=== PATIENT | female | born 1990 | race African-American/Black ===

== ENCOUNTER → 2020-10-13 | Outpatient (CLI) | payer BC, OTHER ==
[~2020-10-13] VITALS: Ht 162.6 cm; Wt 72.6 kg
[~2020-10-13] MED LIST: BANOPHEN25 MG PO; FLEXERIL PO; LIDODERM1 EACH TOP; NAPROSYN500 MG PO; ROBAXIN 750 MG750 MG PO
[2020-10-13 13:06] VITALS: BP 118/68
--- NOTE | 2020-10-13 13:29 | NUR ---
Pain Clinic Assessment: 1. History of Osteoarthritis: Not Applicable History of Rheumatoid Arthritis: Not Applicable 2. Height: 5 ft. 4 in. 162.6 cm. Weight: 160.0 lb. oz. 72.576 kg. Patient's BMI: 27.5 3. Vital Signs: BP: 118/68 Pulse: 94 Resp: 14 Temp: 02 Sat: 99 ECG Mon: 4. Pain Intensity: 7 5. Fall Risk: Dizziness: N Needs help standing or walking: N Fallen in the last 3 months: N Fall risk comments: 6. Patient on Blood Thinner: None 7. History of Hypertension: N 8. Opioid Therapy greater than 6 weeks: N Opiate Contract Signed: 9. Risk Assessment Tool Provided: MODERATE 10. Functional Assessment Tool: 67/70 11. Recreational Drug Use: Current within past 3 mos Drug Type: MARIJUANIA Tobacco Use: Never Smoker Tobacco Type: Amount or Packs/day: How Many Years: Alcohol Use: Yes Frequency: Daily Quant: 1
--- NOTE | 2020-10-14 11:42 | HPC ---
[facility] [place] [address] PAIN MANAGEMENT CONSULTATION Name: KIRSTIN ELENA Room #: REG ASHLEY SmallJanetteSilviaJanette#: [id number] Admission: 10/13/20 Attend Phys: Duane Leon DO Discharge: Date of : 89 Report #: [id number] THIS REPORT FOR: cc: Cody Wilburn MD,Cody Leon,Duane Cintron DO ~ DATE OF SERVICE: 10/13/2020 CHIEF COMPLAINT: Low back pain, left lower extremity pain with paresthesias, intermittent mid back pain and neck pain. HISTORY OF PRESENT ILLNESS: As you know, the patient is a 30-year-old female who reports longstanding history of low back pain, left anterior thigh pain beginning 05/28/2009. The patient reports no specific injury or trauma that have led to that symptom development. She has trialled [id number] medications, rest, relaxation without improvement in symptoms. She has been treated by multiple physicians over the past couple of years seeking chiropractic manipulation, massage therapy. She has been started and stopped on Flexeril, naproxen, ibuprofen and Robaxin. She has had fentanyl patches and utilizes marijuana. Despite all these potential treatment options she continued to experience pain. She sought evaluation through neurosurgery, who advised the patient there is no surgical necessity and she only has mild scoliotic curvature. She was subsequently referred to our clinic to discuss undergoing interventional treatments to address axial back pain and left lower extremity pain. The patient reports today her pain is continuous, steady and constant with intermittent exacerbations. She states her pain is shooting, cramping, aching, crushing, pulling, throbbing, pounding, sharp, stabbing and tender, places current pain score 7/10, daily average anywhere from 8-10/10, worst pain has been is 16/10. The patient states pain is exacerbated with "anything." Nothing tends to improve pain. The patient has recently started physical therapy and states that this makes her pain worse and I encouraged her to continue this treatment. She has been referred to our clinic to discuss interventional treatment options. PAST MEDICAL HISTORY: 1. Asthma. 2. Hypothyroidism. 3. Chronic back pain. PAST SURGICAL HISTORY: None. SOCIAL HISTORY: The patient denies tobacco use. She smokes marijuana to help with her back symptoms. She admits to 1 alcohol beverage per day. 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 She is not in litigation in regards to pain. She is unaccompanied today. REVIEW OF SYSTEMS: Positive for eye disease, wearing corrective eyewear, blurred and double vision, asthma, wheezing, abdominal pain, irregular menses, lightheadedness and dizziness, numbness and tingling sensations, history of paralysis, psychogenic nervousness, depression, thyroid disease. All other review of systems negative per 12-point review of systems other than those listed in history of present illness. Pain impact score 67 of 70, near complete interference of daily activities secondary to pain. ALLERGIES: No known drug allergies. CURRENT MEDICATIONS: Lidoderm patch apply topically every 12 hours, diphenhydramine 25 mg p.o. at bedtime, methocarbamol 750 mg b.i.d., naproxen 500 mg t.i.d., cyclobenzaprine 10 mg t.i.d. p.r.n. IMAGING: X-ray of the lumbar spine obtained on 09/21/2020 shows mild thoracolumbar scoliosis with curvature with convexity to the right, vertebral heights are well maintained, mild disk narrowing at the L5-S1 level. PHYSICAL EXAMINATION: VITAL SIGNS: Blood pressure 118/68, pulse 94, respiratory rate 14 and unlabored. The patient is 99% on room air. Height 5 feet 4 inches tall, weight 160 pounds, BMI calculated 27.5. GENERAL: Well-developed, well-nourished, well-hydrated 30-year-old female appearing her stated age. She is in no acute distress, awake, alert and oriented x 3. Current pain is rated at 7/10. HEENT: Normocephalic, atraumatic. Pupils equal, round, and responsive. Extraocular muscles are intact. Sclerae nonicteric without injection. Speech appears fluent. The patient is wearing a mask in compliance with COVID-19 regulations. Trachea is midline. No palpable masses, or swelling. LUNGS: Clear, no wheeze, rhonchi or rales. CARDIOVASCULAR: Regular. No appreciable gallop, no rub. ABDOMEN: Soft, nontender, nondistended, normoactive bowel sounds. EXTREMITIES: Show no clubbing, no cyanosis, no edema. MUSCULOSKELETAL: Lower extremity strength equal and symmetrical 5/5, intact to light touch from L1 through S2 dermatomes. Seated straight leg raising negative. Supine straight leg raising negative. Shelley test is negative. Modified Gaenslen's positive for axial low back pain. Ankle clonus negative. Babinski is negative. Romberg's negative. The patient is able to toe walk, heel walk and tandem gait without any issues. Reflexes are 2+/4 bilaterally in the patella and Achilles as well as the biceps, brachioradialis and triceps. ASSESSMENT: 1. Chronic low back pain. [facility] [address] [place] [address] PAIN MANAGEMENT CONSULTATION Name: KIRSTIN ELENA Room #: REG ASHLEY Adkins#: [id number] Admission: 10/13/20 Attend Phys: Duane Leon DO Discharge: Date of : 90 Report #: [id number] 2. Left lower extremity pain. 3. Mild dextroscoliosis. 4. Chronic intractable pain. PLAN: 1. The patient has been referred to our service by her neurosurgery team to discuss interventional treatment options to address axial back and left lower extremity symptoms. I was unable to elicit any type of radicular component of the patient's symptoms today. She does have some myofascial tenderness over the paraspinal musculature of the thoracic and lumbar area, but no spinous process tenderness. The patient is complaining of pain beginning in the low back and radiating down the left leg, which could be due to mild changes noted at the L5-S1 level. We discussed with the patient that treatment options would include the following. 2. We discussed physical therapy, stretching exercises and core strengthening as the gold standard and likely the most effective treatment option. We discussed utilization of nonsteroidal anti-inflammatories. We would strongly suggest no opioid medication as there is no noted pathology, but we will defer to the primary team who has been writing opioid medications in the past. We concur with Dr. Wilburn in regards to the use of opioid medications as ineffectual treating current symptoms. We discussed interventional treatment options for which the patient was referred to our clinic. These would include epidural injections and trigger point injections. We also discussed with the patient the surgical options that she has sought which has been advised she is nonsurgical candidate. After reviewing the risks and benefits of all the proposed treatment options, the patient chose to begin with an epidural injection. 3. The patient will establish an appointment to see us back to undergo first in a series of lumbar epidural injections to address low back and left lower extremity symptoms. We are hopeful the patient can undergo the procedure quite quickly. We will discuss her case with her third democrat payer to confirm that authorizations are completed if they are necessary and have her return next week for the first in a series of epidural injections. The patient is to clear her schedule after the injection to go home and take it easy for at least the first 24 hours. The patient is agreeable with plan. She will make an appointment next week to undergo the first in a series of epidural injections. 4. No medication changes made at today's visit. We recommend the patient remain on current medications. She is on Lidoderm patch and naproxen, which are appropriate and consistent with the patient's symptoms. 5. We plan to see the patient back in followup visit once we have confirmed authorizations that may be necessary for the epidural injection and the patient is able to clear her schedule to undergo the procedure. We will keep you apprised of response once this procedure has been performed. 6. We wish to thank Dr. Wilburn for the referral of patient to our clinic. We will keep you apprised of response to treatment and whether or not she sees analgesic benefit with the treatment options provided. It does appear that based on Dr. Wilburn's notes that if she does not see improvement, she is to [address] [address] PAIN MANAGEMENT CONSULTATION Name: KIRSTIN ELENA Room #: REG ASHLEY ChandlerJanette#: [id number] Admission: 10/13/20 Attend Phys: Duane Leon DO Discharge: Date of : 90 Report #: [id number] follow up with Dr. Roblero in regards to surgical options if they are to be entertained. Again, we wish to thank Dr. Wilburn for the referral of the patient to our clinic. <ELECTRONICALLY SIGNED> By: Duane Leon DO 10/14/20 1142 [id number] Duane Leon DO /nt
== END ==
LOC: PAIN 07:01
PROVIDERS: ATTEND Anesthesiology Pain Medicine
DX: M54.5 Low back pain (principal); M79.605 Pain in left leg; M54.2 Cervicalgia; R20.2 Paresthesia of skin; M41.9 Scoliosis, unspecified

== ENCOUNTER → 2020-10-20 | Outpatient (CLI) | payer BC, OTHER ==
[~2020-10-20] VITALS: Ht 162.6 cm; Wt 60.9 kg
[2020-10-20 09:34] VITALS: BP 109/77
--- NOTE | 2020-10-20 09:48 | NUR ---
Pain Clinic Assessment: 1. History of Osteoarthritis: Not Applicable History of Rheumatoid Arthritis: Not Applicable 2. Height: 5 ft. 4 in. 162.6 cm. Weight: 134.2 lb. oz. 60.873 kg. Patient's BMI: 23.0 3. Vital Signs: BP: 109/77 Pulse: 101 Resp: 14 Temp: 02 Sat: 100 ECG Mon: 4. Pain Intensity: 7 5. Fall Risk: Dizziness: N Needs help standing or walking: N Fallen in the last 3 months: N Fall risk comments: 6. Patient on Blood Thinner: None 7. History of Hypertension: N 8. Opioid Therapy greater than 6 weeks: N Opiate Contract Signed: 9. Risk Assessment Tool Provided: MODERATE 10. Functional Assessment Tool: 67/70 11. Recreational Drug Use: Current within past 3 mos Drug Type: MARIJUANA Tobacco Use: Never Smoker Tobacco Type: Amount or Packs/day: How Many Years: Alcohol Use: Yes Frequency: Weekly Quant: 1-2
--- NOTE | 2020-10-21 11:53 | HPC ---
[facility] [place] [address] PAIN MANAGEMENT CONSULTATION Name: KIRSTIN ELENA Room #: REG ASHLEY SmallJanetteSilvia.#: [id number] Admission: 10/20/20 Attend Phys: Duane Leon DO Discharge: Date of : 90 Report #: [id number] THIS REPORT FOR: cc: Cody Wilburn MD,Cody Leon,Duane Cintron DO ~ DATE OF SERVICE: 10/20/2020 REFERRING PHYSICIAN: Cody Wilburn MD CHIEF COMPLAINT: Low back pain, left lower extremity pain with paresthesias. HISTORY OF PRESENT ILLNESS: As you know, the patient is a 30-year-old female with longstanding history of chronic low back pain, left anterior thigh pain beginning 05/28/2009. No specific injury or trauma was noted to be the source of symptoms. She has trialled various treatment options ultimately seeking treatment through Neurosurgery, who advised the patient to trial more conservative treatment options initially. She was seen in consultation per the request of Dr. Wilburn on 10/13/2020 due to third constitution party payer restrictions, authorization had to be obtained before the patient could undergo first in a series of lumbar epidural injections. She also needed to clear her schedule, to be able to rest and relax after the injection for at least the first 24 hours. She returns today in followup visit reporting a pain score of 7/10, requesting to undergo lumbar epidural injection under fluoroscopic guidance. ALLERGIES: NO DRUG ALLERGIES. CURRENT MEDICATIONS: Lidoderm patch apply topically every 12 hours, diphenhydramine 25 mg p.o. at bedtime, methocarbamol 750 mg b.i.d., naproxen 500 mg t.i.d., cyclobenzaprine 10 mg p.r.n. SOCIAL HISTORY: The patient denies tobacco use. She smokes marijuana. Denies IV or illicit drug use. Admits to one alcohol beverage per day. 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 IMAGING STUDIES: No new imaging available. PHYSICAL EXAMINATION: VITAL SIGNS: Blood pressure 109/77, pulse 101, respiratory rate 14 and unlabored. The patient is 100% on room air. Height 5 feet 4 inches tall, weight 134.2 pounds, BMI calculated 23.0. GENERAL: Well-developed, well-nourished, well-hydrated 30-year-old female appearing stated age, pain is rated around 7/10. HEENT: Normocephalic and atraumatic. Pupils are round and responsive. The patient is wearing a mask in compliance with COVID-19 regulations. EXTREMITIES: Show no clubbing, no cyanosis, [place] [address] PAIN MANAGEMENT CONSULTATION Name: KIRSTIN ELENA Room #: REG CLLorenzo Chandler.#: [id number] Admission: 10/20/20 Attend Phys: Duane Leon DO Discharge: Date of : 89 Report #: [id number] MUSCULOSKELETAL: Seated straight leg raising negative. Supine straight leg raising negative. Shelley's test negative. Modified Gaenslen's positive for some axial low back pain. Ankle clonus negative. Babinski is negative. ASSESSMENT: 1. Chronic low back pain. 2. Left lower extremity pain. 3. Mild dextroscoliosis. 4. Chronic intractable pain. PLAN: 1. The patient returns today in followup visit to undergo lumbar epidural injection under fluoroscopic guidance per the request of her referring neurosurgeon, Dr. Cody Wilburn to address axial back pain, left lower extremity pain with paresthesias. The patient has been advised of the risks and benefits of a lumbar epidural injection. These risks include but are not necessarily limited to bleeding, bruising, infection, worsening pain, no relief of pain, also risk of temporary or permanent muscle weakness, temporary or permanent nerve damage, possible paralysis, post-dural puncture headache and . The patient states understood and wished to proceed. 2. No medication changes made at today's visit. The patient will continue current medical therapy as prior prescribed. 3. We plan to see the patient back in followup visit in 31 days to discuss the efficacy of today's epidural injection and determine if next in the series would be recommended. PROCEDURE NOTE DESCRIPTION OF PROCEDURE: Lumbar epidural steroid injection under fluoroscopic guidance. This is the first procedure of the first series that the patient is undergoing. After obtaining written consent, the patient was taken back to the fluoroscopy suite, placed in a prone position with pillow under the abdomen to decrease lumbar lordosis. The skin overlying the lumbosacral area was then prepped and draped in aseptic fashion. The L5-S1 vertebral interspace was then identified by AP fluoroscopy. The skin and subcutaneous tissue overlying the target site of injection was anesthetized with 3 mL 1% lidocaine. A(n) 20-gauge 3-1/2 inch Tuohy needle was then advanced under fluoroscopic guidance towards the epidural space using a midline approach. The epidural space was identified using loss of resistance to air technique. After negative aspiration for heme or cerebrospinal fluid, a total of 1 mL of Omnipaque was injected. A lumbar epidurogram was confirmed using both AP and lateral fluoroscopy. After negative aspiration for heme or cerebrospinal fluid, 5 mL [address] [address] PAIN MANAGEMENT CONSULTATION Name: KIRSTIN ELENA Room #: REG ASHLEY Adkins#: [id number] Admission: 10/20/20 Attend Phys: Duane Leon DO Discharge: Date of : 90 Report #: [id number] a solution containing 2 mL 40 mg per mL, 80 mg total triamcinolone along with 3 mL of lidocaine 1% was injected in increments. Contrast spread was noted posterior epidural space. The needle was then retracted approximately half way and needle tract flushed with 1 mL of 1% lidocaine. Needle was then removed. There were no apparent sensory or motor deficits in the lower extremity following the procedure. A sterile bandage was placed over the injection site. The heart rate, pulse, oximetry and blood pressure were continuously monitored after the procedure. There were no complications. The patient tolerated the procedure well and was carefully escorted to the recovery room in stable condition. There were no apparent complications. After meeting discharge criteria, the patient was then discharged home. <ELECTRONICALLY SIGNED> By: Duane Leon DO 10/21/20 1153 [id number] 1158 Duane Leon DO /nt
== END | disposition home or self-care (01) ==
LOC: PAIN 06:50
PROVIDERS: ATTEND Anesthesiology Pain Medicine
DX: M54.5 Low back pain (principal); G89.29 Other chronic pain; M79.605 Pain in left leg; Z79.899 Other long term (current) drug therapy

== ENCOUNTER → 2020-11-24 | Outpatient (CLI) | payer BC, OTHER ==
[~2020-11-24] VITALS: Ht 162.6 cm; Wt 62.6 kg
[~2020-11-24] MED LIST changes: +NEURONTIN 300M300 M2 PO
[2020-11-24 10:12] VITALS: BP 118/80
--- NOTE | 2020-11-24 10:18 | NUR ---
Pain Clinic Assessment: 1. History of Osteoarthritis: Not Applicable History of Rheumatoid Arthritis: Not Applicable 2. Height: 5 ft. 4 in. 162.6 cm. Weight: 138.0 lb. oz. 62.596 kg. Patient's BMI: 23.7 3. Vital Signs: BP: 118/80 Pulse: 80 Resp: 16 Temp: 02 Sat: 100 ECG Mon: 4. Pain Intensity: 7.5 5. Fall Risk: Dizziness: N Needs help standing or walking: N Fallen in the last 3 months: N Fall risk comments: 6. Patient on Blood Thinner: None 7. History of Hypertension: N 8. Opioid Therapy greater than 6 weeks: N Opiate Contract Signed: 9. Risk Assessment Tool Provided: MODERATE-4 10. Functional Assessment Tool: 67/70 11. Recreational Drug Use: Current within past 3 mos Drug Type: marijuana Tobacco Use: Never Smoker Tobacco Type: Amount or Packs/day: How Many Years: Alcohol Use: Yes Frequency: Weekly Quant: 1-2
--- NOTE | 2020-12-01 08:06 | HPC ---
[address] [place] [address] PAIN MANAGEMENT CONSULTATION Name: KIRSTIN ELENA Room #: REG ASHLEY SmallJanetteSilviaJanette#: [id number] Admission: 11/24/20 Attend Phys: Duane Leon DO Discharge: Date of : 90 Report #: [id number] THIS REPORT FOR: cc: Cody Wilburn MD,Cody Leon,Duane Cintron DO ~ DATE OF SERVICE: 11/24/2020 CHIEF COMPLAINT: Low back pain, left lower extremity pain with paresthesias. HISTORY OF PRESENT ILLNESS: As you know, the patient is a 30-year-old female with longstanding history of chronic low back pain, anterior thigh pain that presented 05/28/2009. The patient denies any specific injury or trauma. She sought evaluation through Neurosurgery and advised to trial conservative treatment initially to determine if her symptoms are amenable to a more conservative approach before looking toward surgical options. We saw the patient in consultation, 10/13/2020, diagnosed with chronic low back pain, left lower extremity pain and underwent an epidural injection under fluoroscopic guidance on 10/20/2020. She returns today in followup visit indicating that she received improvement in symptoms of about 90%, lasting for about 3 weeks. She returns today in followup visit requesting to undergo next in the series of lumbar epidural injections to address suspected lumbar radiculopathy. She is also requesting a possible adjustment in medication management. Today, the patient is placing pain score 7.5/10. ALLERGIES: No known drug allergies. CURRENT MEDICATIONS: Lidoderm patch apply topically every 12 hours, diphenhydramine 25 mg once a day, methocarbamol 750 mg b.i.d., naproxen 500 mg t.i.d., cyclobenzaprine 10 mg p.r.n. SOCIAL HISTORY: The patient denies tobacco, continues to smoke marijuana on a near daily basis. Denies IV or illicit drug use. Admits to 1 alcohol beverage per day. 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 IMAGING: No new imaging available. PHYSICAL EXAMINATION: VITAL SIGNS: Blood pressure 118/80, pulse 80, respiratory rate 16 and unlabored. The patient is 100% on room air. Height 5 feet 4 inches tall, weight 138 pounds, BMI calculated 23.7. GENERAL: A well-developed, well-nourished, well-hydrated 30-year-old female appearing stated age, pain is rated today 7.5/10. HEENT: Normocephalic, atraumatic. Pupils equal, round, and responsive. EXTREMITIES: Show no clubbing, no cyanosis. No appreciable edema. MUSCULOSKELETAL: Seated straight leg raising negative. Supine straight leg [address] [address] PAIN MANAGEMENT CONSULTATION Name: KIRSTIN ELENA Room #: REG ASHLEY Adkins#: [id number] Admission: 11/24/20 Attend Phys: Duane Leon DO Discharge: Date of : 90 Report #: [id number] raising negative. Shelley's test is negative. Gait is normal. Modified Gaenslen's positive for some mild axial low back pain. Ankle clonus negative. Babinski is negative. ASSESSMENT: 1. Chronic low back pain. 2. Left lower extremity pain. 3. Mild dextroscoliosis. 4. Chronic intractable pain. PLAN: 1. The patient returns today in followup visit requesting to undergo epidural injection under fluoroscopic guidance. She reports a 90% improvement in overall pain with the epidural injection provided on 10/20/2020 and unfortunately, her symptoms recurred. She returns for the next in the series of epidural injections in hopes of improving pain. She has been advised risks and benefits of the procedure, states understood and wished to proceed. The patient was advised to today's injection is the second in the series of epidural injections in the 6 months. We have one remaining epidural injection to provide to the patient through 04/19/2020. The patient and I did discuss that we should delay the next in the series of injections as long as possible. 2. The patient was provided a prescription of gabapentin 300 mg dose. She will begin 1 tab p.o. at bedtime. Continue for 3 nights and then may escalate to 600 mg. We will provide the patient the medication with the understanding that she will follow up with her PCP to continue the therapy. The patient will watch for side effects of sleepiness, disorientation, confusion, mental slowing with use of this medication. She is not to take this medication with any other sedating substances. 3. We will see the patient back in followup visit for the next in the series of epidural injections. If the patient notes improvement, but her symptoms do reoccur, we have one remaining epidural injection. If we only see transient improvement in symptoms with this injection, I would recommend follow up with Neurosurgery to discuss her options. DESCRIPTION OF PROCEDURE: L5-S1 interlaminar epidural steroid injection under fluoroscopic guidance. This is the second procedure of the first series that the patient is undergoing. After obtaining written consent, the patient was taken back to the fluoroscopy suite, placed in a prone position with pillow under the abdomen to decrease lumbar lordosis. The skin overlying the lumbosacral area was then prepped and draped in aseptic fashion. The L5-S1 vertebral interspace was then identified by AP fluoroscopy. The skin and subcutaneous tissue overlying the target site of injection was anesthetized with 3 mL 1% lidocaine. [address] [place] [address] PAIN MANAGEMENT CONSULTATION Name: KIRSTIN ELENA Room #: REG ASHLEY Adkins#: [id number] Admission: 11/24/20 Attend Phys: Duane Leon DO Discharge: Date of : 90 Report #: [id number] A 20-gauge 3-1/2 inch Tuohy needle was then advanced under fluoroscopic guidance towards the epidural space using a right parasagittal approach. The epidural space was identified using loss of resistance to air technique. After negative aspiration for heme or cerebrospinal fluid, a total of 1 mL of Omnipaque was injected. A lumbar epidurogram was confirmed using both AP and lateral fluoroscopy. After negative aspiration for heme or cerebrospinal fluid, 5 mL of a solution containing 2 mL 40 mg per mL, 80 mg total triamcinolone along with 3 mL of lidocaine 1% mL was injected in increments. Contrast spread was noted in posterior epidural space. The needle was then retracted approximately half way and needle tract flushed with 1 mL of 1% lidocaine. Needle was then removed. There were no apparent sensory or motor deficits in the lower extremity following the procedure. A sterile bandage was placed over the injection site. The heart rate, pulse, oximetry and blood pressure were continuously monitored after the procedure. There were no apparent complications. The patient tolerated the procedure well and was carefully escorted to the recovery room in stable condition. There were no apparent complications. After meeting discharge criteria, the patient was then discharged home. <ELECTRONICALLY SIGNED> By: Duane Leon DO 12/01/20 0806 [id number] 1514 Duane Leon DO /nt
== END | disposition home or self-care (01) ==
LOC: PAIN 06:53
PROVIDERS: ATTEND Anesthesiology Pain Medicine
DX: M54.5 Low back pain (principal); G89.29 Other chronic pain; M41.86 Other forms of scoliosis, lumbar region; M79.605 Pain in left leg; Z98.890 Other specified postprocedural states; Z79.899 Other long term (current) drug therapy

== ENCOUNTER → 2021-01-05 | Outpatient (CLI) | payer OTHER ==
[~2021-01-05] VITALS: Ht 162.6 cm; Wt 66.8 kg
[2021-01-05 13:07] VITALS: BP 114/74
--- NOTE | 2021-01-05 13:16 | NUR ---
Pain Clinic Assessment: 1. History of Osteoarthritis: Not Applicable History of Rheumatoid Arthritis: Not Applicable 2. Height: 5 ft. 4 in. 162.6 cm. Weight: 147.2 lb. oz. 66.769 kg. Patient's BMI: 25.3 3. Vital Signs: BP: 114/74 Pulse: 76 Resp: 14 Temp: 02 Sat: 100 ECG Mon: 4. Pain Intensity: 9 5. Fall Risk: Dizziness: N Needs help standing or walking: N Fallen in the last 3 months: N Fall risk comments: 6. Patient on Blood Thinner: None 7. History of Hypertension: N 8. Opioid Therapy greater than 6 weeks: N Opiate Contract Signed: 9. Risk Assessment Tool Provided: MODERATE-4 10. Functional Assessment Tool: 67/70 11. Recreational Drug Use: Current within past 3 mos Drug Type: MARIJUANA Tobacco Use: Never Smoker Tobacco Type: Amount or Packs/day: How Many Years: Alcohol Use: Yes Frequency: Special Occasions Quant: OCCASIONAL
--- NOTE | 2021-01-06 07:59 | HPC ---
[address] [address] PAIN MANAGEMENT CONSULTATION Name: KIRSTIN ELENA Room #: REG ASHLEY SmallJanetteSilvia.#: [id number] Admission: 01/05/21 Attend Phys: Duane Leon DO Discharge: Date of : 89 Report #: [id number] THIS REPORT FOR: cc: Cody Wilburn MD,Cody Leon,Duane Cintron DO ~ DOC #: [id number] DATE OF SERVICE: 01/05/2021 CHIEF COMPLAINT: Low back pain, left lower extremity pain with paresthesias. HISTORY OF PRESENT ILLNESS: As you know, the patient is a 30-year-old female with longstanding history of chronic low back pain, anterior thigh pain, who was referred to our clinic by her neurosurgeon, Dr. Cody Wilburn to trial epidural injections under fluoroscopic guidance. We saw the patient in consultation per Dr. Wilburn's request. In 09/2020, she underwent a lumbar epidural injection under fluoroscopic guidance, returning in one month, undergoing the second in the series. She reports the second in the series of epidural injections provided about 50% improvement in overall pain. Unfortunately, her symptoms have begun to return. She returns today to undergo the third and final in the series of epidural injections in 6 months. She is reporting pain score today of the level 9/10. She has suffered no injury, no trauma or any changes in medical management since our last visit. ALLERGIES: No known drug allergies. CURRENT MEDICATIONS: Gabapentin 300 mg b.i.d., lidocaine patches applied topically, diphenhydramine 25 mg p.o. at bedtime, methocarbamol 750 mg once a day, naproxen 500 mg twice a day, cyclobenzaprine 10 mg t.i.d. SOCIAL HISTORY: The patient denies tobacco. Denies IV drug use. Smokes marijuana on a daily basis. She admits to 1 alcohol beverage per day. She is a healthcare provider, unaccompanied today. IMAGING: No new imaging available. PHYSICAL EXAMINATION: VITAL SIGNS: Blood pressure 114/74, pulse 76, respiratory rate 14 and unlabored. The patient is 100% on room air. Height 5 feet 4 inches tall, weight 147.2 pounds, BMI calculated 25.3. GENERAL: Well-developed, well-nourished, well-hydrated 30-year-old female. She appears her stated age. She is in no acute distress. Awake, alert and oriented x3. Current pain score is rated at 9/10. HEENT: Normocephalic, atraumatic. Pupils are responsive. The patient is deemed a good historian. She is wearing a mask in compliance with COVID-19 [place] [address] PAIN MANAGEMENT CONSULTATION Name: KIRSTIN ELENA Room #: REG ASHLEY Adkins#: [id number] Admission: 01/05/21 Attend Phys: Duane Leon DO Discharge: Date of : 90 Report #: [id number] regulations. EXTREMITIES: Show no clubbing, no cyanosis. No appreciable edema. MUSCULOSKELETAL: Lower extremity strength is symmetrical 5/5. Muscle bulk and tone equal and symmetrical in comparing lower extremities. Seated straight leg raising negative. Supine straight leg raising negative. Fabere's test is negative. ASSESSMENT: 1. Chronic low back pain. 2. Right lower extremity pain. 3. Mild dextroscoliosis. 4. Chronic intractable pain. 5. Left lower extremity pain. PLAN: 1. The patient returns today in followup visit to undergo the third in the series of lumbar epidural injections. The most recent epidural injection gave 50% improvement in overall pain. Unfortunately, her symptoms have reoccurred now, reporting a pain score of 9/10. She denies injury or trauma that led to the recurrence of pain. She returns today to undergo the next in the series of lumbar epidural injections. This is the final in the series of the 6 months. She has been advised of risks and benefits of the procedure, states understood and wished to proceed. 2. No medication changes made at today's visit. Recommend the patient continue current medical therapy as prior prescribed. 3. We will see the patient back in followup visit on an as needed basis. The next available lumbar epidural injection will be 6 months from the initial injection of 10/20/2020, equating to 04/19/2021. DESCRIPTION OF PROCEDURE: L5-S1 interlaminar epidural steroid injection under fluoroscopic guidance. After obtaining written consent, the patient was taken back to fluoroscopy suite, placed in prone position with pillow under abdomen to decrease lumbar lordosis. Skin overlying lumbosacral area prepped and draped in aseptic fashion. The L5-S1 vertebral interspace identified by AP fluoroscopy. Skin and subcutaneous tissue overlying target site injection anesthetized with 3 mL of 1% lidocaine. A 20 gauge 3-1/2 inch Tuohy needle advanced under fluoroscopic guidance towards the epidural space using a paramedian approach. Epidural space identified using loss of resistance to air technique. After negative aspiration for heme or cerebrospinal fluid, 1 mL of Omnipaque injected. Lumbar epidurogram was confirmed using both AP and lateral fluoroscopy. After negative aspiration for heme or cerebrospinal fluid, 5 mL of solution containing 2 mL of 40 mg per mL 80 mg total triamcinolone along with 3 mL of lidocaine, 1% injected slowly. Needle [address] [address] PAIN MANAGEMENT CONSULTATION Name: KIRSTIN ELENA Room #: REG ASHLYE Adkins#: [id number] Admission: 01/05/21 Attend Phys: Duane Leon DO Discharge: Date of : 90 Report #: [id number] retracted intermediate, flushed with 1 mL of 1% lidocaine, then removed. Sterile bandage placed over injection site. No new motor deficits present in lower extremity following procedure. The patient tolerated the procedure well, carefully escorted to recovery room in stable condition. No apparent complications. After meeting discharge criteria, the patient discharged home. Duane Leon DO JEJ/DHI <ELECTRONICALLY SIGNED> By: Duane Leon DO 01/06/21 0759 1530 0021 Duane Leon DO /nt
== END | disposition home or self-care (01) ==
LOC: PAIN 10:08
PROVIDERS: ATTEND Anesthesiology Pain Medicine
DX: M54.5 Low back pain (principal); G89.29 Other chronic pain; M41.86 Other forms of scoliosis, lumbar region; M79.605 Pain in left leg; M79.604 Pain in right leg; Z98.890 Other specified postprocedural states; Z79.899 Other long term (current) drug therapy